=== PATIENT | female | born 1995 | race Caucasian/White ===

== ENCOUNTER 2022-04-10 10:28 | Outpatient (CLI) | payer OTHER | END 2022-04-10 10:34 | disposition home or self-care (01) | LOC: RX STUDY 10:28 | PROVIDERS: ATTEND Specialist | DX: O00.109 Unspecified tubal pregnancy without intrauterine pregnancy (principal) ==

== ENCOUNTER 2023-04-24 09:20 | Outpatient (CLI) | payer OTHER | END 2023-04-24 09:29 | disposition home or self-care (01) | LOC: SONOGRAMA 09:20 | PROVIDERS: ATTEND Specialist | DX: N70.11 Chronic salpingitis (principal) ==